=== PATIENT | male | born 1965 | race Caucasian/White ===

== ENCOUNTER 2018-05-23 10:05 | Inpatient (IN) | payer BC ==
--- NOTE | 2018-05-23 12:51 | HP ---
CHIEF COMPLAINT: Chest pain. HISTORY OF PRESENT ILLNESS: Mr. Chapin is a very pleasant 52-year-old white gentleman, who comes to the hospital for chest pain. He is an athlete. He exercises, runs about 6 miles three times a week at the gym, so this morning, he ran 6 miles and then he went to the pool at the gym and was swimming laps, did not feel well, started having teeth pain and jaw pain, got out of the pool, then eventually became chest pressure that radiated to the left arm, was diaphoretic, had a sensation of impending doom. He told his about this, who immediately took him to the [facility] in [place], where he was found to have anterior ST elevations. He was transferred over to [facility] here in [place], where we emergently took him to the catheterization lab and did an emergent heart catheterization, which showed an occluded LAD just after big diagonal. We wired this lesion, ballooned it open, and placed a drug-eluting stent successfully restoring flow. His symptoms improved completely at that time and he is chest pain free. He otherwise has no other issues for now. PAST MEDICAL HISTORY: Seasonal allergies. PAST SURGICAL HISTORY: Hernia repair. OUTPATIENT MEDICATIONS: Allergy medicines p.r.n. [id number]. ALLERGIES: PENICILLIN. SOCIAL HISTORY: No tobacco. No drugs. Social alcohol use very rarely. FAMILY HISTORY: No early coronary artery disease in parents or siblings. REVIEW OF SYSTEMS: A 12-point review of systems was done and was found to be negative unless stated in the history of present illness. PHYSICAL EXAMINATION: VITAL SIGNS: Temperature 97.2, pulse 58, respiratory rate 18, saturating 98% on 2 L nasal cannula, blood pressure 122/68. GENERAL: Awake, alert, and oriented x3, in no distress. HEENT: Normocephalic, atraumatic. NECK: Supple. LUNGS: Clear. CARDIOVASCULAR: S1 and S2. No S3 or S4. No murmurs. ABDOMEN: Soft. Positive bowel sounds. EXTREMITIES: No edema. SKIN: Warm and dry. LABORATORY DATA: Laboratory work was reviewed. CBC was reviewed. Coags were reviewed. Chemistry; creatinine 1.34, GFR 56. Troponin was undetectable x1 on admission. EKG was reviewed. ASSESSMENT: Acute anterior ST-elevation myocardial infarction. PLAN: 1. Status post drug-eluting stent to his LAD. 2. Dual anticoagulant therapy with Brilinta and aspirin for a minimum of 1 year. 3. He has a large thrombus burden at the area of plaque rupture as well as distal embolization on his LAD, so we will keep him on Aggrastat for the next 12 hours. This will stop at about 11:00 p.m. today and after that, 1 hour later, we will plan on pulling the sheath for hemostasis. He will have to lay flat for 2 hours after pulling the sheath. 4. Low-dose aspirin, Brilinta. 5. High-dose statin. 6. In the next 24 to 48 hours, if blood pressure allows, we will start beta joana and/or GERSON inhibitor. 7. Full code. 8. Cardiac rehab. 9. Disposition: Depending on clinical evolution, probably in the hospital about 2 or 3 days. Job ID: [id number]
--- NOTE | 2018-05-23 22:02 | CON ---
DATE OF CONSULTATION: HISTORY OF PRESENT ILLNESS: Donovan Chapin is a pleasant 52-year-old male, who exercises regularly. While swimming, he had chest and arm pain and jaw pain. He says he felt like an elephant was standing on his chest. He went to the [facility]. He had an LAD stent placed. He had resolution of his symptoms after that. PAST MEDICAL HISTORY: Remarkable only for herniorrhaphy. MEDICATIONS: He has been on no medications. ALLERGIES: HE REPORTS PENICILLIN ALLERGY. SOCIAL HISTORY: He is a nonsmoker, nondrinker. FAMILY HISTORY: He has no family history of heart disease or lung disease in early age. REVIEW OF SYSTEMS: A 10-point review of systems is otherwise negative. PHYSICAL EXAMINATION: GENERAL: He is a very pleasant gentleman, in no distress, visiting with family. VITAL SIGNS: His temperature is 99, heart rate is 55, oximetry is 96, blood pressure 131/81. HEENT: Pupils are equal. Sclerae are anicteric. NECK: Supple. No lymphadenopathy. LUNGS: Clear. HEART: Regular rhythm. S1 and S2 are normal. No murmur, or gallop. ABDOMEN: Soft and nontender. No masses. EXTREMITIES: Without clubbing, cyanosis or edema. LABORATORY DATA: White count 8.8, hemoglobin 16.8, platelets 219,000. Sodium 138, potassium 4.3, chloride 104, bicarb 21, BUN 70, creatinine 1.34. Troponin got up to 106 this afternoon. IMPRESSION: Myocardial infarction status post coronary stenting. He is clinically stable at this time. Job ID: [id number]
--- NOTE | 2018-05-24 15:32 | PRG ---
DATE OF SERVICE: 05/24/2018 SUBJECTIVE: Donovan Chapin has no complaints. He is quickly ambulating around the ICU. In fact, I do not think I have seen anybody walk that fast around the ICU. OBJECTIVE: VITAL SIGNS: Blood pressure 151/92, heart rate 78, respiratory rate 18. GENERAL: He denies having chest pain. LUNGS: Completely clear. HEART: Regular rhythm. S1 and S2 normal. ABDOMEN: Soft and nontender. EXTREMITIES: Without asymmetry or edema. LABORATORY DATA: White count 11.5, hemoglobin 15.9, platelets 199,000. Electrolytes are normal. IMPRESSION: Myocardial infarction with a peak troponin of 106, down to 58 this morning, status post coronary stenting. He is clinically stable. We will sign off. Job ID: [id number]
--- NOTE | 2018-05-25 18:40 | DIS ---
DATE OF ADMISSION: 05/23/2018 DATE OF DISCHARGE: 05/25/2018 DISCHARGING PHYSICIAN: Narayan Guerrero MD PRIMARY DIAGNOSES: 1. Anterior ST-elevation myocardial infection. 2. Ischemic cardiomyopathy. PROCEDURES PERFORMED: 1. Echocardiogram. 2. Left heart catheterization with a drug-eluting stent to the left anterior descending. SUMMARY: Mr. Chapin is a pleasant 52-year-old white gentleman, who comes to the hospital for chest pain. He had chest pain for about an hour before presenting, was found to have an anterior ST-elevation CO and brought in to the crime lab analyst for further evaluation. He was found to have an occluded LAD and this was stented with a drug-eluting stent. He did well postoperatively. Echocardiogram showed an EF of 40% to 45% with anterior septal hypokinesis to akinesis. He is doing well. He is walking around the hallways without issues, tolerating his medications without problems. We will discharge home today. He is stable. PRIOR DISCHARGE MEDICATIONS: 1. Brilinta 90 mg p.o. b.i.d. 2. Atorvastatin 80 mg at bedtime. 3. Aspirin 81 mg a day. 4. Lisinopril 2.5 mg half tablet daily. 5. Sublingual nitroglycerin 0.4 mg p.r.n. chest pain. No beta joana as his heart rate and blood pressure would not allow. Followup appointment with myself in 1 month. Over 30 minutes was spent at bedside counseling for discharge. Job ID: [id number]
== END 2018-05-25 18:54 | disposition home or self-care (01) | DRG 282 ==
LOC: CCU 10:46 → ERHOLD 11:54 → CCU 05-25 14:17
PROVIDERS: ADMIT Internal Medicine Cardiovascular Disease; ATTEND Emergency Medicine
DX: I21.09 ST elevation (STEMI) myocardial infarction involving other coronary artery of anterior wall (principal); I25.5 Ischemic cardiomyopathy
CPT/HCPCS: 36415; 71045; 80048; 80053; 80061; 82553; 83605; 83880; 84439; 84443; 84484; 85025; 85347; 85610; 85730; 92928; 93005; 93010; 93306; 93458; 93798; 96374; 96375; C1725; C1769; C1874; C9600; J0153; J1265; J1644; J2270; J2405; J3246; Q9967

== ENCOUNTER 2024-02-15 13:17 | Emergency (ER) | payer BC ==
[2024-02-15 13:50] LABS: #Basophils 0.05 10x3/uL (0.0-0.2); %Basophils 0.4 % (0.0-1.0); %Eosinophils 0.2 % (0.0-10.0); %Monocytes 7.7 % (0.0-10.0); %Neutrophils 77.3 % (42.0-75.0); Hematocrit 42.3 % (42.0-52.0); Hemoglobin 15.1 g/dL (14.0-18.0); Mean Corpuscular HGB CONC 35.7 g/dL (32.0-36.0); Mean Corpuscular Hemoglobin 32.3 pg (27.0-31.0); Mean Corpuscular Volume 90.4 fL (78.0-98.0); Mean Platelet Volume 10.7 fL (7.4-10.4); Platelet Count 199 10x3/uL (130-400); RBC Distribution Width 12.5 % (11.5-14.5); Red Blood Cell (RBC) Count 4.68 mill/uL (4.70-6.10)
[2024-02-15 14:11] LABS: ALT (SGPT) 37 U/L (8-55); AST (SGOT) 48 U/L (5-34); Albumin 4.1 g/dL (3.5-5.0); Alkaline Phosphatase 76 U/L (40-110); Anion Gap 12 mmol/L (10-20); BUN (Urea Nitrogen) 17 mg/dL (8.4-25.7); Bilirubin, Total 0.8 mg/dL (0.2-1.2); CK (CPK) 956 U/L (30-200); Calc. Creatinine Clearance 0 mL/min (70-130); Calcium 9.5 mg/dL (7.8-10.44); Carbon Dioxide 24 mmol/L (22-29); Chloride 106 mmol/L (98-107); Estimated GFR 77; Globulin 2.8 g/dL (2.4-3.5); Glucose 99 mg/dL (70-105); Potassium 4.4 mmol/L (3.5-5.1); Protein, Total 6.9 g/dL (6.0-8.3); Sodium 138 mmol/L (136-145)
[2024-02-15 14:17] LABS: Troponin I 0.189 ng/mL (< 0.028)
[2024-02-15] MEDS ORDERED: Aspirin 325 MG TAB ONE (15:14)
[2024-02-15 17:23] LABS: Troponin I 0.119 ng/mL (< 0.028)
== END 2024-02-15 17:54 | disposition home or self-care (01) ==
LOC: ERS 13:17
DX: R53.1 Weakness (principal); I25.2 Old myocardial infarction; Z79.82 Long term (current) use of aspirin; Z79.899 Other long term (current) drug therapy
CPT/HCPCS: 36415; 80053; 82550; 84484; 85025; 93005; 99284

== ENCOUNTER 2024-02-20 07:15 | Day surgery (SDC) | payer BC ==
[2024-02-19 10:23] VITALS: BMI 24.4
[2024-02-20] MEDS ORDERED: Verapamil 5 MG/2 ML VIAL ONE (09:34)
[2024-02-20] MEDS ORDERED: Nitroglycerin 50 MG/250 ML BOT 250 ML ONE (09:34)
[2024-02-20] MEDS ORDERED: Heparin 10,000 UNITS/ 10 ML VIAL ONE (09:34)
[2024-02-20] MEDS ORDERED: Midazolam HCl 2 mg/2 ml Vial ONE (09:39)
[2024-02-20] MEDS ORDERED: fentaNYL 50 mcg/mL 1 mL Vial ONE (09:39)
[2024-02-20] MEDS ORDERED: Iopamidol 370 76% 100 ML VIAL ONE (10:27)
== END 2024-02-20 13:28 | disposition home or self-care (01) ==
LOC: CCL 07:15
PROVIDERS: ATTEND Internal Medicine Cardiovascular Disease
PROC: 4A023N7 Measurement of Cardiac Sampling and Pressure, Left Heart, Percutaneous Approach (ICD-10-PCS; principal; 2024-02-20)
DX: R79.89 Other specified abnormal findings of blood chemistry (principal); R06.02 Shortness of breath; I25.5 Ischemic cardiomyopathy; I35.1 Nonrheumatic aortic (valve) insufficiency; I25.10 Atherosclerotic heart disease of native coronary artery without angina pectoris; E03.9 Hypothyroidism, unspecified; N52.9 Male erectile dysfunction, unspecified; Z86.16 Personal history of COVID-19; Z98.890 Other specified postprocedural states; Z88.0 Allergy status to penicillin; Z79.82 Long term (current) use of aspirin; Z79.890 Hormone replacement therapy; Z79.899 Other long term (current) drug therapy
CPT/HCPCS: 93458; 99152; C1769; C1894; J1644; J2250; J3010